=== PATIENT | male | born 1960 | race Hispanic/Latino ===

== ENCOUNTER 2016-10-03 11:29 | Observation (INO) | payer OTHER ==
[~2016-10-03] VITALS: Ht 170.2 cm; Wt 87.0 kg
[2016-10-03] VITALS (7 sets, daily range): BP systolic 120–143; BP diastolic 36–91; PULSE 61–75; RESP 18–20; O2SAT 95–100
[~2016-10-03 11:29] MED LIST: NAPR220T2 PO; OMEP20TA86 PO
--- NOTE | 2016-10-03 11:46 | ED.REPORT ---
HPI-Chest Pain 40 and Over Date of Service Oct 03, 2016 ED Provider: Henok Lau MD The pt is a 56 y/o male presenting to the ED complaining of bilateral numbness in the hands onset yesterday. He is also experiencing dizziness and SOB which began after eating lunch at 1100 today with the associated symptoms of "pressure " in the head, numbness in the upper extremities which is worse on the right, and a feeling of "faintness". He noticed a stammering of speech beginning yesterday, which his denies. He denies any nausea, diaphoresis, chest pain , or changes in leg sensation. He also reports feeling faint two weeks ago at work but didn't experience any of the other symptoms. He is feeling anxious right now and usually takes anxiety medication. His PCP is a Dr. aRo. Nursing Notes Stated Complaint: DIZZY/CHEST PAIN Nursing Notes Reviewed: Yes Allergies: Coded Allergies: No Known Allergies (Unverified , 10/03/16) Scheduled Naproxen Sodium-Expunged Drug, Do Not Renew! (Naproxen Sodium-Expunged Drug, Do Not Renew!) 220 Mg Tablet 500 MG PO BIDP INSTRUCTED TO STOP Omeprazole-Expunged Drug, Do Not Renew! (Omeprazole-Expunged Drug, Do Not Renew! ) 20 Mg Tablet.dr 20 MG PO DAILY General Time Seen by MD: 11:45 Chief Complaint Other (Numbness in hands ) Hx Obtained From: Patient Arrived By: Walk-in Sudden in Onset?: Yes Onset Occurred: 1 - 4 hours ago Recent Healthcare: No recent doctor visit, No recent hospitalization Similar Sx Previous: No Risk Factors )( TPA Administration/Criteria Stroke Thrombolytic Therapy : TPA Administered Intravenously: No, not indicated NIH Stroke Scale Level of Consciousness: Alert and responsive (0) Ask Month & Age: Both questions right (0) Open/Close Eyes/Hand Courtesy Booth Cashier: Performs both tasks (0) Horizontal EO Movements: None (0) Visual Ewing: No visual loss (0) Facial Palsy: Normal symmetry (0) Right Arm Motor Drift (10s): No drift 10 sec (0) Left Arm Motor Drift (10s): No drift 10 sec (0) Right Leg Motor Drift (5s): No drift 5 sec (0) Left Leg Motor Drift (5s): No drift 5 sec (0) Limb Ataxia FNF/Heel-Sanchez: No ataxia (0) Sensation (Arms/Legs/Face): No sensory loss (0) Language Aphasia: No aphasia, normal (0) Dysarthria: No dysarthria, normal (0) Extinction/Inattention: No exctinct/inattent (0) NIHSS Score: 0 Time NIHSS Performed: 11:55 Date NIHSS Performed: Oct 03, 2016 )( CVA Risk Stratification Hyperlipidemia Past Medical History The pt Past Medical History [facility] Past Surgical History Knee surgery Family History Reports: Diabetes mellitus (Mother) Smoking History Never Smoker Review of Systems Review of Systems Note: Stammering in speech Respiratory: Reports: Shortness of breath Cardiovascular: Denies: Chest pain GI: Denies: Nausea Skin: Denies Diaphoresis Neurologic: Reports: Dizziness, Headache (Pressure), Numbness (In upper extremities, worse on right) Complete sys rev & neg: except as marked. Physical Exam Initial Vital Signs Vital Signs (First) Date Time Temp Pulse Resp B/P Pulse Ox O2 Delivery O2 Flow Rate FiO2 10/03/16 11:30 36.4 75 20 139/90 100 Room Air Initial VS: Reviewed, Vital signs normal General/Constitutional: Awake, Alert Respiratory / Chest: Atraumatic, Breath sounds NL, Breath sounds = bilat, No respiratory distress, No rales, No rhonchi, No wheezing, No retractions Cardiovascular: Heart rate NL, Regular rhythm, Heart sounds NL, No gallop, No murmurs, No rubs Abdomen: Atraumatic, Soft Neck: Atraumatic, Supple, Full range of motion Back: Atraumatic, Full range of motion Lower Extremity / Pelvis / MS: Atraumatic, Full range of motion Skin: Atraumatic, Warm, Dry Neurologic: Oriented X3, Speech NL, No motor deficits, No sensory deficits, CN II - XII intact Psychiatric: Affect NL, Mood NL, Not suicidal Head / Eyes: Normocephalic, PERRL, EOMI ENT: Airway patent, Mucous membranes moist, Pharynx NL Interpretation & Diagnostics Lab Results Interpretation Result Diagram: 10/03/16 1140 10/03/16 1140 Test 10/03/16 11:40 White Blood Count 7.3th/mm3 (3.8-10.1) Red Blood Count 4.94mil/mm3 (4.40-5.80) Hemoglobin 15.2g/dL (13.8-17.2) Hematocrit 44.0% (41.0-50.0) Mean Corpuscular Volume 89.1fL (81-100) Mean Corpuscular Hemoglobin 30.8pg (27.0-35.0) Mean Corpuscular Hemoglobin Concent 34.5% (32.0-37.0) Red Cell Distribution Width 14.3% (12.3-15.4) Platelet Count 235bil/L (150-400) Neutrophils (%) (Auto) 44.6% (40-74) Lymphocytes (%) (Auto) 43.5% (14-46) Monocytes (%) (Auto) 6.5% (4-12) Eosinophils (%) (Auto) 3.6% (0-5) Basophils (%) (Auto) 1.5% (0-3) Sodium Level 140mEq/L (134-144) Potassium Level 3.7mEq/L (3.5-5.2) Chloride Level 103mEq/L (97-108) Carbon Dioxide Level 22mmol/L (18-29) Blood Urea Nitrogen 18mg/dL (6-24) Creatinine 1.08mg/dL (0.76-1.27) Estimat Glomerular Filtration Rate 76mL/min (>59) Glucose Level 101mg/dL (60-99) Calcium Level 9.4mg/dL (8.5-10.1) Magnesium Level 2.3mg/dL (1.6-2.6) Total Bilirubin 0.6mg/dL (0.0-1.2) Aspartate Amino Transf (AST/SGOT) 28U/L (0-50) Alanine Aminotransferase (ALT/SGPT) 32U/L (0-44) Alkaline Phosphatase 52U/L (25-150) Troponin T 0.010ug/L (0.0-0.011) Total Protein 7.1g/dL (6.4-8.4) Albumin 4.7g/dL (3.4-5.0) Hold Gracia Top Tube Received (Received) Lab Results Interpretation: CBC normal CMP normal X-Ray Chest Interpretation Chest Xray Interpretation: IMPRESSION: No acute pulmonary process. Dictated by: Marjorie Steel M.D. on 10/03/2016 at 12:48 Approved by: Marjorie Steel M.D. on 10/03/2016 at 12:48 View: Portable, 1 view Interpretation / Wet Read by: Interpret - Radiologist CT Head Interpretation Brain CT w/o contrast IMPRESSION: 1. No acute intracranial process. Dictated by: Marjorie Steel M.D. on 10/03/2016 at 12:48 Approved by: Marjorie Steel M.D. on 10/03/2016 at 12:50 Re-Eval/Medical Decision Med Decision/Clinical Course This is a 56-year-old Taiwanese-speaking male presents to emergency room complaining of difficulty word finding starting yesterday, and then intermittently today-not present now. He denies headache, was complaining of hand numbness, with the right side worse than the left-today's had some bilateral hand numbness. He denies reynaldo weakness, although there was a nursing report of chest pain and could not get a complaint of chest pain from him. Prior history of similar symptoms. He arrives well outside the window for TPA, and currently has an NIH stroke scale of 0 in the emergency room without gross deficit, and speech is normal to me. Contrast head CT was normal. He is in a sinus rhythm. Labs are normal. Overall consistent 56-year-old male having intermittent expressive aphasia and some right arm numbness, and then bilateral hand numbness that may be in part due to anxiety. Patient indicates he does have a history of anxiety and would like some medicine-said he did receive a dose of lorazepam in the department. He was seen by speech therapy. He is given aspirin. He is being admitted for stroke workup. Source of Hx: Old records Time of Eval: 13:40 Re-Evaluation/Progress Note: Pt rechecked. Informed pt of need for admission. Pt understands and agrees with plan for admission. All questions addressed. Consultation : Referral / Consult Name: Jadon Ro MD Consulted With: Hospitalist Call Returned at: 13:48 Director Pharmacy Services: Accepts admit Counseled Regarding: Diagnosis, Lab results, Need for follow-up, Need for admission Discharge & Departure Primary Impression: Expressive aphasia Disposition: ADMITTED TO HOSPITAL Discharge Condition All VS Reviewed: Yes Condition: Stable Referrals: Kenyetta Bell MD (PCP) Scribe Attestation Portions of this note were transcribed by Dao Martínez and Anibal Laughlin. IDr. Lau personally performed the history, physical exam and medical decision- making; I reviewed and confirmed the accuracy of the information in the transcribed note. Signed by: Dao Martínez and Anibal Laughlin, Hienibgabrielle, 10/03/16 and 1230. copies to: Kenyetta Bell MD, Matthew F MD Oct 03, 2016 11:46 Dao Martínez Oct 03, 2016 11:59 ANIBAL LAUGHLIN Oct 03, 2016 12:40
[2016-10-03 12:04] LABS: BASOPHILS % (AUTO) 1.5 % (0-3); EOSINOPHILS % (AUTO) 3.6 % (0-5); MONOCYTES % (AUTO) 6.5 % (4-12); Mean Corpuscular Hemoglobin 30.8 pg (27.0-35.0); Mean Corpuscular Volume 89.1 fL (81-100); NEUTROPHILS % (AUTO) 44.6 % (40-74); Platelet Count 235 bil/L (150-400)
[2016-10-03 12:29] LABS: TROPONIN T 0.01 ug/L (0.0-0.011)
[2016-10-03 12:40] LABS: Magnesium 2.3 mg/dL (1.6-2.6)
--- NOTE | 2016-10-03 12:50 | DRSVH ---
PROCEDURE: X-RAY CHEST ONE VIEW, PORTABLE ([id number]) INDICATIONS: chest pain TECHNIQUE: One view of the chest was acquired. COMPARISON: None. FINDINGS: Surgical changes and devices: None. Lungs and pleura: No pleural effusions or pneumothorax. Lungs are clear. Mediastinum: Mediastinal contours appear normal. Heart size is normal. Bones and chest wall: No suspicious bony lesions. Overlying soft tissues appear unremarkable. IMPRESSION: No acute pulmonary process. Dictated by: Marjorie Steel M.D. on 10/03/2016 at 12:48 Approved by: Marjorie Steel M.D. on 10/03/2016 at 12:48
--- NOTE | 2016-10-03 12:52 | DRSVH ---
PROCEDURE: CT BRAIN WITHOUT CONTRAST ([id number]) INDICATIONS: expressive aphasia TECHNIQUE: Noncontrast 4.5 mm thick angled axial sections acquired from the foramen magnum to the vertex, with c oronal reformats. COMPARISON: None. FINDINGS: Image quality: Excellent. CSF spaces: Basal cisterns are patent. No extra-axial fluid collections. Ventricles are normal in size and shape. Brain: No midline shift. No intracranial masses or hemorrhage. Villarreal-white matter interface is norm al. Skull and face: Calvarium and visualized facial bones are intact, without suspicious lesions. Sinuses: Visualized sinuses and mastoids are clear. IMPRESSION: 1. No acute intracranial process. Dictated by: Marjorie Steel M.D. on 10/03/2016 at 12:48 Approved by: Marjorie Steel M.D. on 10/03/2016 at 12:50
[2016-10-03] MEDS ORDERED: Alum-Mag Hydrox-Simeth 30 mL Suspension PO PRN ×2 (15:05→15:40)
[2016-10-03] MEDS ORDERED: Ondansetron 2 mg/mL 2 mL Inj IVPUSH PRN ×2 (15:05→15:40)
[2016-10-03] MEDS ORDERED: Polyethylene Glycol (PEG) 17 Gm Powder PO PRN (15:40)
[2016-10-03] MEDS: 0.9% Sodium Chloride 1,000 ML IV SCH (15:58)
--- NOTE | 2016-10-03 16:21 | PCM.HPMED ---
Subjective Date of Service Oct 03, 2016 Primary Provider: Admitting Physician: Jadon Ro MD Primary Care Physician: Kenyetta Bell MD Attending Physician: Jadon Ro MD Admit Status: From the Emergency Department, 23-Hour Observation, Remote Telemetry Chief Complaint: Dizziness/15 minutes Bilateral hand numbness/15 minutes History of Present Illness: History obtained using typist Livan is a 56-year-old gentleman with no significant past medical history who came to the emergency room due to 'dizziness' or 'faintness' and hand Numbness. he states at 11:15 today he was eating lunch at home and developed sudden onset dizziness. He describes the dizziness as his head felt heavy and was not able to support it. He also felt 'the floor moving in a straight line.' He also felt bilateral hand and forearm numbness. He also felt some chest tightness during the episode. The entire episode of symptoms lasted for 15 minutes. Did not notice any motor weakness. Family did not notice facial symmetry. No speech Difficulty following episode. Denies diaphoresis. Denies any symptoms at time of exam ED notes states history of anxiety on medications but patient denies. ED course: Exam unremarkable. Labs unremarkable.CT brain negative.NIHSS 0, EKG and initial troponin negative,admission requested for workup of TIA. Review of Systems: A comprehensive review of systems performed, pertinent positives and negatives included in history of present illness Allergies Coded Allergies: No Known Allergies (Unverified , 10/03/16) Home Medications 'cholesterol medication' PMH Hyperlipidemia Surgical History Right knee meniscus repair Family History Review and unremarkable Social History Hx Alcohol Use: Yes Alcoholic Drinks Per Day: 2 BEERS DAILY Hx Substance Use: No Hx Tobacco Use: No Smoking Status: Never Smoker Exam Vital Signs Vital Sign - Last Date Time Temp Pulse Resp B/P Pulse Ox O2 Delivery O2 Flow Rate FiO2 10/03/16 15:47 36.8 69 18 120/76 95 Room Air Exam Gen. patient is lying comfortably in hospital bed HEENT: Head is normocephalic atraumatic, Pupils equal and reactive, extraocular movements intact, Lungs clear to auscultation bilaterally Heart regular rate and rhythm without murmurs gallops or rubs Abdomen soft nontender without hepatosplenomegaly Extremities pulses are present dorsalis pedis posterior tibialis and radial. Skin is warm and dry there are no rashes, Psych alert and oriented to person place and time Neuro cranial nerves II through XII are grossly intact. Motor intact. Sensation intact. No facial palsy. Speech clear Lymph: There is no lymphadenopathy appreciated in the cervical supra infraclavicular regions : no pena Lab and Diagnostics Result Diagram: 10/03/16 1140 10/03/16 1140 X-Rays, CTs and MRIs PROCEDURE: CT BRAIN WITHOUT CONTRAST ([id number]) INDICATIONS: expressive aphasia IMPRESSION: 1. No acute intracranial process. Dictated by: Marjorie Steel M.D. on 10/03/2016 at 12:48 Assessment & Plan Livan is a 56-year-old gentleman with no significant past medical history who came to the emergency room due to 'dizziness' or 'faintness' and hand Numbness. # Suspected TIA -ASA,atorvastatin started -MRI stroke protocol,echo requested -CT brain negative -serial neuro exam -telemetry -A1c,lipid panel in am -PT eval if any more symptom observation status Full code copies to: Kenyetta Bell MD, Melaku MD Oct 03, 2016 16:21
[2016-10-03] MEDS ORDERED: LORA-302 PO (17:11)
[2016-10-03] MEDS ORDERED: ATOR40TA69 PO (17:11)
--- NOTE | 2016-10-03 21:23 | DRSVH ---
PROCEDURE: MRI STROKE PROTOCOL ([id number]) Pre- and post-contrast brain MRI, non-contrast brain MR angiogram, pre- and postcontrast neck MR félix ogram INDICATIONS: EXPRESSIVE APHASIA,TIA TECHNIQUE: Brain: Noncontrast axial T1 spin echo, axial T2 fast spin echo, sagittal and axial FLAIR, coronal T2 fast spin echo, axial gradient echo, axial diffusion and ADC through the brain. After the administr ation of contrast, axial 3D VIBE of the cranial vasculature and brain. Brain MRA: Non-contrast 3-D time of flight MR angiogram, with multiple hlichmj-hdelszjoi-setqkjgrjv (MIP) reformats performed. Neck MRA: Axial and sagittal TruFISP through the neck. Coronal dynamic MR angiogram during administ ration of contrast in the arterial and venous phases, with 3-dimenstional csnqrxk-eclygsjcr-znyjgibph n (MIP) reformats constructed from subtraction images. COMPARISON: [facility], CT, CT BRAIN WO CON, 10/03/2016, 12:34. FINDINGS: Image quality: Excellent. BRAIN: The ventricular system and cortical sulci are normal in size and appearance for the patient's stated age. There is no acute intra-or extra axial fluid collection. No acute hemorrhage, mass lesion or mid line shift. Brainstem is unremarkable. There are no areas of restricted diffusion. Globes are symmetr ical. Sinuses demonstrate mild pansinus mucosal thickening most prominent in the maxillary sinuses. O sseous structures are intact. BRAIN MR ANGIOGRAM: The posterior circulation demonstrates a vertebral artery codominance. Basilar artery and posterior c erebral arteries demonstrate no areas of hemodynamically significant stenosis, vascular occlusion or aneurysmal dilation. Posterior communicating arteries are within normal limits. The anterior circulation, including the anterior and middle cerebral arteries, as well as internal ca rotid arteries demonstrates no areas of hemodynamically significant stenosis, vascular occlusion or a neurysmal dilation. NECK MR ANGIOGRAM: The origins of the left and right common, internal and external carotid arteries demonstrate no areas of hemodynamically significant stenosis, vascular occlusion or aneurysmal dilation. Origins of the l eft and right vertebral arteries demonstrate no areas of hemodynamically significant stenosis, vascul ar occlusion or aneurysmal dilation. Aortic arch demonstrates conventional anatomy. Limited, visualiz ed portions subclavian vasculature are unremarkable. IMPRESSION: 1. No acute intracranial process. No acute ischemia. 2. No areas of hemodynamically significant stenosis, vascular occlusion or aneurysmal dilation within the posterior circulation. 3. No areas of hemodynamically significant stenosis, vascular occlusion or aneurysmal dilation within the anterior circulation. 4. No areas of hemodynamically significant stenosis, vascular occlusion or aneurysmal dilation within the neck vasculature. The estimate of stenosis included in the report of the imaging study was calculated using the NASCET method Dictated by: Marjorie Steel M.D. on 10/03/2016 at 21:16 Approved by: Marjorie Steel M.D. on 10/03/2016 at 21:21
[2016-10-03 21:55] LABS: APPEARANCE,URINE HAZY (CLEAR,HAZY); COLOR,URINE YELLOW (YELLOW); OCCULT BLOOD,URINE NEGATIVE (NEGATIVE); UROBILINOGEN,URINE NORMAL (NORMAL)
[2016-10-04 00:47] VITALS: BP 116/70; PULSE 63; RESP 18
[2016-10-04] MEDS: 0.9% Sodium Chloride 1,000 ML IV SCH ×2 (01:05→06:04)
[2016-10-04 05:37] LABS: BASOPHILS % (AUTO) 1.1 % (0-3); MONOCYTES % (AUTO) 8.4 % (4-12); Mean Corpuscular Hemoglobin 30.6 pg (27.0-35.0); Mean Corpuscular Volume 92.4 fL (81-100); NEUTROPHILS % (AUTO) 51.5 % (40-74); Platelet Count 197 bil/L (150-400)
[2016-10-04 06:10] VITALS: BP 128/79; PULSE 56; RESP 18; O2SAT 98
[2016-10-04 06:32] LABS: Magnesium 2.1 mg/dL (1.6-2.6)
[2016-10-04 09:30] VITALS: PULSE 64
[2016-10-04 09:59] VITALS: BP 130/81; PULSE 62; RESP 18; O2SAT 96
[2016-10-04] MEDS ORDERED: ASPI81TA3 PO (10:25)
--- NOTE | 2016-10-04 11:38 | PCM.DIMED ---
Discharge Instructions Date of Service October 04, 2016 Dates of Hospitalization Oct 03, 2016 at 14:35 Discharge Diagnosis Discharge Diagnosis TIA Medication Instructions start taking aspiring for prevention of stroke Diet Low fat, Low Sodium, Heart Healthy, Diabetic Activity No restrictions Call your provider Shortness of breath, Chest pain, Weakness (unilateral) Patient Instructions You were hospitalized with symptoms concerning for stroke. However,all of the workups in the hospital didn't show any signs of stroke. Please note that we discussed risks management to prevent future stroke. Please continue medicines for high blood pressure, high cholesterol. Please continue healthy diet and exercise. Pleas note that you could benefit from heart monitoring device which can be arranged in the clinic later. Utility of this monitoring was discussed in details. Follow-up plan Please follow up with your doctor in 2weeks Follow-up Provider: Kenyetta Bell MD Follow-up with PCP in: 2 weeks Wilfrido Dunlap MD October 04, 2016 11:38
[2016-10-04 14:08] VITALS: BP 137/80; PULSE 61; RESP 18; O2SAT 100
[2016-10-04 20:21] VITALS: BP 128/67; PULSE 85; RESP 18; O2SAT 99
--- NOTE | 2016-10-05 13:36 | PCM.DC.MED ---
Discharge Summary Date of Service October 04, 2016 Dates of Hospitalization Date of Hospital Admission Oct 03, 2016 at 14:35 Date of Discharge: October 04, 2016 Providers: Admitting Physician: Jadon Ro MD Primary Care Physician: Kenyetta Bell MD Attending Physician: Jadon Ro MD Diagnosis at Time of Discharge Diagnosis at Time of Discharge TIA Procedures XRay, CTs & MRIs PROCEDURE: MRI STROKE PROTOCOL ([id number]) Pre- and post-contrast brain MRI, non-contrast brain MR angiogram, pre- and postcontrast neck MR angiogram INDICATIONS: EXPRESSIVE APHASIA,TIA TECHNIQUE: Brain: Noncontrast axial T1 spin echo, axial T2 fast spin echo, sagittal and axial FLAIR, coronal T2 fast spin echo, axial gradient echo, axial diffusion and ADC through the brain. After the administration of contrast, axial 3D VIBE of the cranial vasculature and brain. Brain MRA: Non-contrast 3-D time of flight MR angiogram, with multiple maximum- intensity-projection (MIP) reformats performed. Neck MRA: Axial and sagittal TruFISP through the neck. Coronal dynamic MR angiogram during administration of contrast in the arterial and venous phases, with 3-dimenstional xytveco-oxkdkuobg-zdcoazewve (MIP) reformats constructed from subtraction images. COMPARISON: [facility], CT, CT BRAIN WO CON, 10/03/2016, 12:34. FINDINGS: Image quality: Excellent. BRAIN: The ventricular system and cortical sulci are normal in size and appearance for the patient's stated age. There is no acute intra-or extra axial fluid collection. No acute hemorrhage, mass lesion or midline shift. Brainstem is unremarkable. There are no areas of restricted diffusion. Globes are symmetrical. Sinuses demonstrate mild pansinus mucosal thickening most prominent in the maxillary sinuses. Osseous structures are intact. BRAIN MR ANGIOGRAM: The posterior circulation demonstrates a vertebral artery codominance. Basilar artery and posterior cerebral arteries demonstrate no areas of hemodynamically significant stenosis, vascular occlusion or aneurysmal dilation. Posterior communicating arteries are within normal limits. The anterior circulation, including the anterior and middle cerebral arteries, as well as internal carotid arteries demonstrates no areas of hemodynamically significant stenosis, vascular occlusion or aneurysmal dilation. NECK MR ANGIOGRAM: The origins of the left and right common, internal and external carotid arteries demonstrate no areas of hemodynamically significant stenosis, vascular occlusion or aneurysmal dilation. Origins of the left and right vertebral arteries demonstrate no areas of hemodynamically significant stenosis, vascular occlusion or aneurysmal dilation. Aortic arch demonstrates conventional anatomy. Limited, visualized portions subclavian vasculature are unremarkable. IMPRESSION: 1. No acute intracranial process. No acute ischemia. 2. No areas of hemodynamically significant stenosis, vascular occlusion or aneurysmal dilation within the posterior circulation. 3. No areas of hemodynamically significant stenosis, vascular occlusion or aneurysmal dilation within the anterior circulation. 4. No areas of hemodynamically significant stenosis, vascular occlusion or aneurysmal dilation within the neck vasculature. The estimate of stenosis included in the report of the imaging study was calculated using the NASCET method Dictated by: Marjorie Setel M.D. on 10/03/2016 at 21:16 Approved by: Marjorie Steel M.D. on 10/03/2016 at 21:21 PROCEDURE: CT BRAIN WITHOUT CONTRAST ([id number]) INDICATIONS: expressive aphasia IMPRESSION: 1. No acute intracranial process. Dictated by: Marjorie Steel M.D. on 10/03/2016 at 12:48 Brief History History obtained using interior specialist Livan is a 56-year-old gentleman with no significant past medical history who came to the emergency room due to 'dizziness' or 'faintness' and hand Numbness. he states at 11:15 today he was eating lunch at home and developed sudden onset dizziness. He describes the dizziness as his head felt heavy and was not able to support it. He also felt 'the floor moving in a straight line.' He also felt bilateral hand and forearm numbness. He also felt some chest tightness during the episode. The entire episode of symptoms lasted for 15 minutes. Did not notice any motor weakness. Family did not notice facial symmetry. No speech Difficulty following episode. Denies diaphoresis. Denies any symptoms at time of exam ED notes states history of anxiety on medications but patient denies. ED course: Exam unremarkable. Labs unremarkable.CT brain negative.NIHSS 0, EKG and initial troponin negative,admission requested for workup of TIA. Hospital Course HPI obtained by on 10/03 Livan is a 56-year-old gentleman with no significant past medical history who came to the emergency room due to 'dizziness' or 'faintness' and hand Numbness. pt was admitted to stroke w/u, CTH was negative. Episode didn't recur. Asa, lipitor was started. MR stroke protocol didn't show any evidence of stroke. patient remained neurologically intact. Pt was ambulating with normal gait. Given his transient symptoms without images evidence of stroke, TIA is still possible. Given patient's risk factors, patient was recommended to continue aspirin, lipitor, and continue on healthy diet and lifestyle. Exam Vital Signs (Last) Date Time Temp Pulse Resp B/P Pulse Ox O2 Delivery O2 Flow Rate FiO2 10/04/16 14:08 36.6 61 18 137/80 100 10/04/16 09:59 Room Air Exam NAD, comfortably laying down on the bed no JVD, MMM, no LAD RRR, nl s1, s2 no mrg CTAB, no w,c S,ND,NT,normoactive BS+ warm, no edema, pulses 2/2 Test 10/03/16 11:40 10/03/16 21:00 10/04/16 05:15 Troponin T 0.010ug/L (0.0-0.011) Hold Gracia Top Tube Received (Received) Urine Color Yellow (YELLOW) Urine Appearance Hazy (CLEAR,HAZY) Urine pH 7.0 (5.0-8.0) Urine Specific Gary 1.015 (1.003-1.035) Urine Protein Negativemg/dL (NEG,TRACE) Urine Glucose (UA) Negativemg/dL (NEGATIVE) Urine Ketones Negativemg/dL (NEGATIVE) Urine Occult Blood Negative (NEGATIVE) Urine Nitrite Negative (NEGATIVE) Urine Bilirubin Negative (NEGATIVE) Urine Urobilinogen Normalmg/dL (NORMAL) Urine Leukocyte Esterase Negative (NEGATIVE) Urine RBC 0-2/hpf (0-2) Urine WBC 0-5/hpf (0-5) Urine Epithelial Cells Occasional/hpf (NONE-MOD) Urine Crystals Amorphous urates (NONE Urine Bacteria Few/hpf (NONE-FEW) Urine Hyaline Casts None/lpf (NONE) Urine Granular Casts None seen (NONE SEEN) Urine Waxy Casts None seen (NONE SEEN) Urine Red Blood Cell Casts None seen (NONE SEEN) Urine White Blood Cell Casts None seen (NONE SEEN) Urine Mucus Present (None Seen) Urine Trichomonas None seen (NONE SEEN) Urine Yeast None (NONE SEEN) Urinalysis Comment None Urine Culture Reflexed Not indicated White Blood Count 6.4th/mm3 (3.8-10.1) Red Blood Count 4.61mil/mm3 (4.40-5.80) Hemoglobin 14.1g/dL (13.8-17.2) Hematocrit 42.6% (41.0-50.0) Mean Corpuscular Volume 92.4fL (81-100) Mean Corpuscular Hemoglobin 30.6pg (27.0-35.0) Mean Corpuscular Hemoglobin Concent 33.1% (32.0-37.0) Red Cell Distribution Width 14.2% (12.3-15.4) Platelet Count 197bil/L (150-400) Neutrophils (%) (Auto) 51.5% (40-74) Lymphocytes (%) (Auto) 34.8% (14-46) Monocytes (%) (Auto) 8.4% (4-12) Eosinophils (%) (Auto) 4.0% (0-5) Basophils (%) (Auto) 1.1% (0-3) Sodium Level 142mEq/L (134-144) Potassium Level 4.1mEq/L (3.5-5.2) Chloride Level 107mEq/L (97-108) Carbon Dioxide Level 20mmol/L (18-29) Blood Urea Nitrogen 21mg/dL (6-24) Creatinine 0.66mg/dL (0.76-1.27) Estimat Glomerular Filtration Rate 134mL/min (>59) Glucose Level 112mg/dL (60-99) Calcium Level 8.0mg/dL (8.5-10.1) Magnesium Level 2.1mg/dL (1.6-2.6) Total Bilirubin 0.5mg/dL (0.0-1.2) Aspartate Amino Transf (AST/SGOT) 19U/L (0-50) Alanine Aminotransferase (ALT/SGPT) 26U/L (0-44) Alkaline Phosphatase 47U/L (25-150) Total Protein 5.5g/dL (6.4-8.4) Albumin 3.8g/dL (3.4-5.0) Triglycerides Level 185mg/dL (0-149) Cholesterol Level 185mg/dL (100-199) LDL Cholesterol, Calculated 113.000mg/dL (0-99) VLDL Cholesterol 37.000mg/dL HDL Cholesterol 35mg/dL (>39) Cholesterol/HDL Ratio 5.29 (0.0-4.4) Thyroid Stimulating Hormone (TSH) 1.230uIU/mL (0.450-4.500) Discharge Medications Discharge Medications Aspirin Chew (Aspirin Chew) 81 Mg Chew 81 MG PO DAILY Prescribed by: WILFRIDO HERNANDEZ MD Atorvastatin Calcium (Atorvastatin Calcium) 40 Mg Tablet 40 MG PO HS (Reported) As needed Lorazepam (Ativan) 0.5 Mg Tablet 0.5 MG PO DAILY PRN PRN For Anxiety (Reported) Additional med instructions start taking aspiring for prevention of stroke Followup Plan Disposition: home Follow-up plan Please follow up with your doctor in 2weeks Discharge Diet: Low fat, Low Sodium, Heart Healthy, Diabetic Discharge Activity: No restrictions Patient Instructions You were hospitalized with symptoms concerning for stroke. However,all of the workups in the hospital didn't show any signs of stroke. Please note that we discussed risks management to prevent future stroke. Please continue medicines for high blood pressure, high cholesterol. Please continue healthy diet and exercise. Pleas note that you could benefit from heart monitoring device which can be arranged in the clinic later. Utility of this monitoring was discussed in details. Follow-up Provider: Kenyetta Bell MD Follow-up with PCP in: 2 weeks Time spent 65min Wilfrido Hernandez MD October 04, 2016 17:12
== END 2016-10-04 13:19 | disposition home or self-care (01) ==
LOC: SED 11:29 → MPC 14:35
PROVIDERS: ADMIT Internal Medicine; ATTEND Internal Medicine
DX: F80.1 Expressive language disorder (principal); R55 Syncope and collapse; R42 Dizziness and giddiness; R20.0 Anesthesia of skin; G45.9 Transient cerebral ischemic attack, unspecified; E78.5 Hyperlipidemia, unspecified; F41.9 Anxiety disorder, unspecified; I25.2 Old myocardial infarction
CPT/HCPCS: 36415; 70450; 70549; 70553; 71010; 80053; 80061; 81000; 82948; 83036; 83735; 84443; 84484; 85025; 92610; 93005; 96374; 99285; A9585; C8929; G0378; J1650; J2060; J7030

== ENCOUNTER 2017-01-23 12:24 | Emergency (ER) | payer OTHER ==
[~2017-01-23] VITALS: Ht 170.2 cm; Wt 89.1 kg
[~2017-01-23 12:24] MED LIST changes: +ASPI81TA3 PO; +ATOR40TA69 PO; +LORA-302 PO; -NAPR220T2 PO; -OMEP20TA86 PO
[2017-01-23 12:29] VITALS: BP 149/90; PULSE 96; RESP 16; O2SAT 100
--- NOTE | 2017-01-23 12:53 | ED.REPORT ---
HPI-General Illness Date of Service Jan 23, 2017 ED Provider: Rogelio Estrada PA-C Livan is a otherwise healthy 56-year-old male presenting to the emergency department with a chief complaint possible anxiety attack. Patient states that he drank about 14 beers last THIS morning feeling hung over. He reports several episodes of vomiting without blood. He states that he began to feel short of breath and lightheaded. He states this is similar to his typical anxiety attack. He took a 1 mg lorazepam, which is prescribed him for anxiety, and his symptoms began to improve. However he is concerned that combining alcohol with his lorazepam is dangerous. Patient states that all symptoms began this morning. Patient denies cough, wheeze, chest pain, heart palpitations, abdominal pain, fever, shaking chills, malaise. Also denies recent trauma or surgery, leg swelling, exogenous estrogen, history of cancer, hemoptysis, leg swelling or history of DVT/PE. Denies history of heart or lung disease. Review of records indicates a history of heart attack, though when again asked directly the patient denies history of heart attack. Nursing Notes Stated Complaint: CHEST PAIN Chief Complaint: General Complaint Nursing Notes Reviewed: Yes Allergies: Coded Allergies: No Known Allergies (Unverified , 10/03/16) Scheduled Aspirin Chew (Aspirin Chew) 81 Mg Chew 81 MG PO DAILY Atorvastatin Calcium (Atorvastatin Calcium) 40 Mg Tablet 40 MG PO HS Scheduled PRN Lorazepam (Ativan) 0.5 Mg Tablet 0.5 MG PO DAILY PRN PRN For Anxiety General Time Seen by MD: 12:52 Chief Complaint Chest pain Past Medical History Past Medical History Denies Past Surgical History Knee surgery Family History Reports: Diabetes mellitus Smoking History Never Smoker Review of Systems Negative unless stated otherwise in history of present illness Physical Exam General: Well appearing, well developed, well nourished, no acute distress. Head: Atraumatic, normocephalic. Eyes: No scleral icterus or injection. No discharge. Vision grossly intact. ENT: Voice clear, hearing grossly intact. Respiratory: Regular rate and rhythm. Breath sounds present, clear to auscultation and equal bilaterally. No respiratory distress. No increased work of breathing, speaks in complete sentences. Cardiovascular: Regular rate and rhythm, without murmur, gallop or rub. No pedal edema. Skin: Warm and dry. Legs: Negative pitting edema. Calf diameter roughly equal left versus right. Negative calf tenderness. Negative Homans sign. DP pulses 2+ Neurological: Grossly nonfocal. Psychological: Alert and oriented. Speech appropriate, linear and logical. Behavior appropriate. Vital Signs Vital Signs Date Time Temp Pulse Resp B/P Pulse Ox O2 Delivery O2 Flow Rate FiO2 01/23/17 16:34 36.8 88 20 134/85 96 Room Air 01/23/17 15:59 36.8 88 20 134/85 96 Room Air 01/23/17 12:29 36.7 96 16 149/90 100 Room Air Elevated blood pressure Interpretation & Diagnostics Lab Results Interpretation Result Diagram: 01/23/17 1515 01/23/17 1515 Test 01/23/17 15:15 White Blood Count 8.6th/mm3 (3.8-10.1) Red Blood Count 5.07mil/mm3 (4.40-5.80) Hemoglobin 15.7g/dL (13.8-17.2) Hematocrit 46.4% (41.0-50.0) Mean Corpuscular Volume 91.5fL (81-100) Mean Corpuscular Hemoglobin 31.0pg (27.0-35.0) Mean Corpuscular Hemoglobin Concent 33.8% (32.0-37.0) Red Cell Distribution Width 14.2% (12.3-15.4) Platelet Count 198bil/L (150-400) Sodium Level 145mEq/L (134-144) Potassium Level 3.8mEq/L (3.5-5.2) Chloride Level 106mEq/L (97-108) Carbon Dioxide Level 21mmol/L (18-29) Blood Urea Nitrogen 14mg/dL (6-24) Creatinine 0.74mg/dL (0.76-1.27) Estimat Glomerular Filtration Rate 117mL/min (>59) Glucose Level 81mg/dL (60-99) Calcium Level 9.0mg/dL (8.5-10.1) Troponin T < 0.010ug/L (0.0-0.011) Hold Gracia Top Tube Received (Received) ECG Interpretation ECG Interpretation: Sinus rhythm with a rate of 81 and regular. Borderline prolonged MI interval at 209. Early repo pattern. Negative for ischemic changes. Time: 13:32 Interpreted by: ED physician (Dr. Araya) Re-Eval/Medical Decision Med Decision/Clinical Course 56 mL presents emergency Department with chief complaint of possible panic attack. Patient reports waking up after negative drinking, over and vomiting. Reports developing shortness of breath. He took a lorazepam feeling that this was most likely an anxiety attack. He is concerned about, and lorazepam and alcohol. At presentation he denies ongoing symptoms. Physical examination is benign with clear lung sounds and heart tones. The patient is well appearing. Vital signs are normal. Negative leg swelling, Homans sign. EKG is reassuring against ischemia. Vital signs are normal. I discussed the case with Dr. Araya, who recommends CBC, BMP and troponin. Troponin is normal, CBC and BMP are unimpressive. This time we are reassured against ACS, CHF, pneumonia, PE, pneumothorax has patient denies continuing chest pain, has reassuring studies. I cannot perk this patient due to his age. His physical examination is reassuring against DVT/PE and he denies chest pain , so I find this unlikely. Discussed the findings with the patient, who was reassured. Advised against taking his anxiety medications along with alcohol. Advised regarding primary care follow-up, provided emergency return precautions. Patient verbalized understanding of, and consent to, the plan. Discharge & Departure Primary Impression: History of shortness of breath Additional Impression: Anxiety Disposition: Home Discharge Condition All VS Reviewed: Yes Patient Instructions: Anxiety (ED) Additional Instructions: Evaluation for an episode of shortness of breath in the emergency department includes interview, physical examination, EKG and blood work all of which are reassuring that this is unlikely to be caused by an immediately dangerous condition. We believe you are stable and safe to go home. Do not take your lorazepam with alcohol, as this can cause oversedation. Follow-up with your primary care provider in the next few days to further assess your anxiety. Return to the emergency Department for new or worsening symptoms including pain in your chest, shortness of breath. Referrals: Kenyetta Bell MD (PCP) EDSupervising Provider for APC: Joe Araya MD Attending Statement I saw and evaluated the patient in conjunction with the PA. I agree with the plan and findings as documented above. In brief, 56-year-old male presenting to the ED for evaluation of transient chest pain and dyspnea typical of previous anxiety attacks.. Well appearing, no acute distress. Nonlabored respirations. Good peripheral perfusion. RRR. Low risk by HEART score. On my assessment, is feeling better and has no further complaints. Given this, plan discharge home w/ careful return precautions, close outpatient follow up. Patient agreeable to plan as stated, no further questions. copies to: Kenyetta Bell MD, William B MD Jan 23, 2017 12:53 Rogelio Estrada PA-C Jan 23, 2017 14:56
[2017-01-23 15:20] LABS: Mean Corpuscular Volume 91.5 fL (81-100)
[2017-01-23 15:52] LABS: TROPONIN T < 0.010 ug/L (0.0-0.011)
[2017-01-23 15:59] VITALS: BP 134/85; PULSE 88; RESP 20; O2SAT 96
[2017-01-23 16:34] VITALS: BP 134/85; PULSE 88; RESP 20; O2SAT 96
== END 2017-01-23 16:15 | disposition home or self-care (01) ==
LOC: SED 12:24
DX: R06.02 Shortness of breath (principal); F41.9 Anxiety disorder, unspecified; Z79.82 Long term (current) use of aspirin